=== PATIENT | male | born 1955 | race Caucasian/White ===

== ENCOUNTER → 2018-08-17 | Outpatient (CLI) | payer OTHER, SELFPAY ==
[2018-07-29 13:10] VITALS: BMI 30.8
--- NOTE | 2018-08-17 06:28 | ECHOD_ITS ---
Reason For Study: CAD, CABG Procedure This was a 2D Doppler, Color Flow transthoracic echocardiogram. Exam performed in department. Left Ventricle Normal LV size. Left ventricular systolic function is normal. The estimated ejection fraction is 65 %. Stage 1 diastolic dysfunction. No regional wall motion abnormalities noted. Right Ventricle Normal RV size. Normal systolic function. Atria Normal left atrium. Normal right atrium. Bubble contrast study negative for right to left interatrial shunt. Mitral Valve Normal mitral valve. Tricuspid Valve Normal tricuspid valve. Aortic Valve Normal aortic valve. Pulmonic Valve Normal pulmonic valve. Great Vessels Normal aortic root. The pulmonary artery is normal size. Normal inferior vena cava. Pericardium/Pleural No pericardial effusion. Medication Performed a rapid injection of agitated mix of 9 cc saline and 1cc air to assess for atrial septal defect. MMode/2D Measurements & Calculations LVIDd: 4.7 cm IVSd: 1.3 cm Ao root diam: 4.2 cm LVIDs: 2.8 cm LVPWd: 1.3 cm RVDd: 3.8 cm FS: 40.4 % LAV(MOD-bp): 55.8 ml LA A4 area: 18.5 cm2 LA dimension(2D): 4.8 cm LAV(MOD-bp) Indexed: 25.9 ml/m2 LAV(MOD-sp2): 58.4 ml LAV(MOD-sp4): 50.7 ml RA A4 area: 19.9 cm2 Doppler Measurements & Calculations MV E max zachary: 67.4 cm/sec Lat Peak E' Zachary: 11.5 cm/sec Med Peak E' Zachary: 8.5 cm/sec MV A max zachary: 72.1 cm/sec E/E' lat: 5.9 E/E' med: 7.9 MV E/A: 0.93 Ao V2 max: 117.5 cm/sec LV V1 max: 87.5 cm/sec PA V2 max: 111.5 cm/sec Ao max P.5 mmHg LV V1 max P.1 mmHg TR max zachary: 248.0 cm/sec TR max P.6 mmHg Interpretation Summary Normal LV size. Left ventricular systolic function is normal. The estimated ejection fraction is 65 %. Stage 1 diastolic dysfunction. Bubble contrast study negative for right to left interatrial shunt. Ordering Physician: cB Santos Referring Physician: Dmitri Thomas Performed By: Becky Gonzalez RDCS
--- NOTE | 2018-08-17 10:23 | STRESSREP ---
Stress Test Report Exercise myocardial perfusion stress test. 63-year-old man with a history of coronary artery bypass surgery in 2015. Medications: Metoprolol levothyroxine ramipril rosuvastatin aspirin. Resting EKG demonstrates sinus bradycardia with a rate of 57 bpm normal intervals are noted resting blood pressures 150/76 mmHg. The patient exercised according to regular Salvador protocol for total duration of 8 minutes. The patient completed 2 minutes into stage III of the Salvador protocol the maximum heart rate attained was 142 bpm which was 91% maximum predicted heart rate the maximum workload was 10.1 metabolic equivalents. Patient maintained sinus rhythm throughout the recording. At rest there were no ST or T wave changes noted suggest ischemia peak exercise nonspecific ST-T wave changes were noted. Occasional premature ventricular complexes were noted. The resting blood pressure is 150/76 mmHg with a peak blood pressure of 204/50 mmHg. Myocardial perfusion protocol. 14.2 mCi of technetium 99m sestamibi was injected at rest. The patient exercised according to regular Salvador protocol for 8 minutes at peak exercise 44.4 mCi of technetium 99m sestamibi was injected stress images were obtained stress and rest images were reconstructed in comparing the short axis vertical and horizontal long axis. Gated images were also obtained per Perfusion SPECT analysis: Review of the stress images demonstrate normal uptake of tracer noted in all areas of the myocardium. The resting images similarly demonstrate normal uptake of tracer noted in all areas of the myocardium. No areas of reversibility are noted suggest ischemia no previous infarct is noted. Gated SPECT analysis: The gated ejection fraction is noted to be 66%. Conclusion: Normal exercise myocardial perfusion stress test with no evidence of ischemia at a high workload. No clinical angina noted. Preserved ejection fraction.
== END | disposition home or self-care (01) ==
PROVIDERS: Family Provider Family Medicine; PCP Family Medicine; Referring Provider Internal Medicine Cardiovascular Disease; Visit Provider Internal Medicine Cardiovascular Disease
DX: I25.10 Atherosclerotic heart disease of native coronary artery without angina pectoris (principal); Z95.1 Presence of aortocoronary bypass graft
CPT/HCPCS: 78452; 93017; 93306; A9500; A4216

== ENCOUNTER → 2019-07-26 | Outpatient (CLI) | payer OTHER, SELFPAY ==
[2018-07-29 13:10] VITALS: BMI 30.8
[2019-07-26 12:47] LABS: AST(SGOT) 15 U/L (15-37); Alanine Aminotransfer ALT/SGPT 25 U/L (16-61); Albumin, Serum 3.6 g/dL (3.2-5.0); Alkaline Phosphatase 58 U/L (45-117); Bilirubin, Direct 0.25 mg/dL (0.00-0.30); Cholesterol 122 mg/dL (200); Free T3 2.5 pg/mL (2.18-3.98); Globulin 3.5 g/dL (2.2-4.2); High Density Lipoprotein 33 mg/dL; Protein, Total 7.1 g/dL (6.4-8.2); T4 Total, Thyroxin 10.8 ug/dL (4.5-12.1); Thyroid Stim Hormone (TSH) 4.33 uIU/mL (0.358-3.74); Triglycerides 63 mg/dL; Very Low Density Lipoprotein 13 mg/dL (5-40)
== END | disposition home or self-care (01) ==
LOC: LAB 10:09
PROVIDERS: PCP Family Medicine; Referring Provider Internal Medicine Cardiovascular Disease; Visit Provider Internal Medicine Cardiovascular Disease
DX: E78.5 Hyperlipidemia, unspecified (principal); I10 Essential (primary) hypertension; I25.10 Atherosclerotic heart disease of native coronary artery without angina pectoris; I48.91 Unspecified atrial fibrillation; I97.89 Other postprocedural complications and disorders of the circulatory system, not elsewhere classified; R00.2 Palpitations; Z95.1 Presence of aortocoronary bypass graft
CPT/HCPCS: 36415; 80061; 80076; 84436; 84443; 84481

== ENCOUNTER → 2020-06-29 10:31 | Outpatient (CLI) | payer OTHER, SELFPAY ==
[2020-06-29 07:37] VITALS: BMI 30.7
[2020-06-29 11:47] LABS: AST(SGOT) 15 U/L (15-37); Alanine Aminotransfer ALT/SGPT 24 U/L (16-61); Albumin, Serum 3.5 g/dL (3.2-5.0); Alkaline Phosphatase 57 U/L (45-117); Bilirubin, Direct 0.22 mg/dL (0.00-0.30); Cholesterol 96 mg/dL (200); Globulin 3.5 g/dL (2.2-4.2); High Density Lipoprotein 29 mg/dL; Triglycerides 59 mg/dL; Very Low Density Lipoprotein 12 mg/dL (5-40)
== END ==
LOC: LAB 10:34
PROVIDERS: PCP Family Medicine; Referring Provider Internal Medicine Cardiovascular Disease; Visit Provider Internal Medicine Cardiovascular Disease
DX: E78.5 Hyperlipidemia, unspecified (principal)
CPT/HCPCS: 36415; 80061; 80076

== ENCOUNTER 2023-07-04 00:42 | Observation (INO) | payer OTHER, SELFPAY ==
[2023-07-04] VITALS (19 sets, daily range): BP systolic 125–176; BP diastolic 43–80; PULSE 57–88; RESP 14–19; TEMP 36.7–38.5; O2SAT 90–99; BMI 31.6; BMI 31.7
--- NOTE | 2023-07-04 01:36 | CT_ITS ---
INDICATION: flank pain (right) EXAMINATION: CT ABDOMEN AND PELVIS WITHOUT CONTRAST - CT Abdomen And Pelvis W/O Contrast Injection TECHNIQUE: Helically acquired images were obtained of the abdomen and pelvis without oral or IV contrast. A radiation dose optimization technique was used for this scan. IV Contrast dosage and agent: None. Oral contrast: None. RADIATION DOSAGE (If Supplied By Facility): CTDIvol = ( 19.19 ) mGy, DLP = ( 1012.52 ) mGycm COMPARISON: No relevant prior comparison study available FINDINGS: LOWER CHEST: Lung bases are clear. Mild cardiomegaly. No pericardial effusion. Coronary calcifications. Small sliding-type hiatal hernia. LIVER: The liver is normal in size, shape, and attenuation. No focal mass. GALLBLADDER AND BILIARY TREE: There is gallbladder distention, cholelithiasis and mild pericholecystic fat stranding. No intra- or extrahepatic biliary ductal dilation. PANCREAS: No inflammation. No focal cystic or solid mass. SPLEEN: Normal size without focal cystic or solid mass. ADRENAL GLANDS: No nodules. KIDNEYS AND URETERS: Normal renal size and position. No hydronephrosis or nephrolithiasis. PERITONEUM: No ascites or free air. No other fluid collection. BOWEL: The stomach is unremarkable. Normal caliber small bowel. No obstruction. No colonic wall thickening or inflammatory changes. Normal appendix. LYMPH NODES: No enlarged mesenteric or retroperitoneal lymph nodes. VESSELS: Aorta is non-dilated. URINARY BLADDER: Unremarkable. REPRODUCTIVE ORGANS: No pelvic masses. Mild prostatomegaly. ABDOMINAL WALL: Small bilateral fat-containing inguinal hernias. BONES: No acute or suspicious osseous abnormality. CT/Abdomen/Pelvis without Cont IMPRESSION: * Distended gallbladder with cholelithiasis and mild pericholecystic fat stranding suggestive of cholecystitis. Please correlate with right upper quadrant ultrasound. * No urinary calculi or hydronephrosis. Electronically Signed: Bola Amanda MD at 2:49 EDT ,
[2023-07-04 01:46] LABS: Bacteria 0 SEEN /hpf (None Seen); Mucous, Urine 0 SEEN /hpf (<or=2+); Red Blood Cells-Urine 0 SEEN /hpf (0-5); White Blood Cells 0 SEEN /hpf (0-5)
[2023-07-04] MEDS: 0.9% Normal Saline (1000mL) 1,000 ML 999 ML IV (01:49)
[2023-07-04] MEDS: Ketorolac 15 MG/ML Vial IV (01:49)
[2023-07-04 01:51] LABS: Absolute Lymphocyte Count 1.02 X10^3/uL (0.83-4.51); Absolute Neutrophil Count 13.2 X10^3/uL (2.0-7.7); Basophil# 0.05 X10^3/uL; Basophil% 0.3 % (0-1); Eosinophil# 0.04 X10^3/uL; Eosinophils% 0.3 % (0-5); Hemoglobin 12.3 g/dL (13.0-16.5); Lymphocyte # 1.02 X10^3/ul (0.83-4.51); Lymphocyte % 6.6 % (19-41); Mean Corp Hgb Conc 32.4 g/dL (32-36); Mean Corpuscular Volume 89.6 fL (80-94); Mean Platelet Vol. 10.9 fl (6.2-12.0); Monocyte# 0.95 X10^3/uL; Monocyte% 6.2 % (0-10); NRBC Flagged by Analyzer 0 % (0-5); Neutrophil # 13.19 X10^3/uL (2.7-7.7); Platelet Count 238 K/mm3 (150-450); RBC Distribution Width CV 13.6 % (11.6-14.6); RBC Distribution Width SD 44.4 fl (35.1-43.9); Red Blood Count 4.24 M/mm3 (4.6-6.2); White Blood Count 15.3 K/mm3 (4.4-11.0)
[2023-07-04 01:52] LABS: Color, Urine Yellow (Yellow); Glucose, Dipstick Normal (Normal); Ketone-Dipstick Negative (Negative); Leukocyte Esterase-Dipstick Negative /ul (Negative); Nitrite-Dipstick Negative (Negative); Occult Blood-Urine Negative /ul (Negative); Protein-Dipstick 15 mg/dl (Negative); Specific Gravity, Urine 1.025 (1.002-1.030); Urine Bilirubin Dipstick Negative (Negative); Urine Clarity Clear (Clear); Urine Urobilinogen Normal (Normal)
[2023-07-04 02:02] LABS: Squamous Epithelial Cells - UA 0-5 SEEN /hpf (0-5)
[2023-07-04 02:09] LABS: Anion Gap 5 (5-15); BUN 19 mg/dL (7-18); BUN/Creat Ratio 20.5 RATIO (10-20); Calcium,Total 8.8 mg/dL (8.5-10.1); Chloride 110 mmol/L (98-107); Creatinine, Serum 0.93 mg/dL (0.70-1.30); EST Glomerular Filtration Rate 86 mL/min (>60); Est Glom Filt Rate - Afr Amer 104 mL/min (>60); Estimated Creatinine Clearance 92.87 ml/min; Glucose 171 mg/dL (74-106); Potassium 3.6 mmol/L (3.5-5.1); Sodium Level 141 mmol/L (136-145)
--- NOTE | 2023-07-04 03:23 | US_ITS ---
STUDY: ABDOMINAL ULTRASOUND - RIGHT UPPER QUADRANT REASON FOR VISIT: Male, 67 years old RUQ pain TECHNIQUE: Ultrasound evaluation of the right upper quadrant was performed with real-time and static silvestre-scale imaging. TECHNICAL QUALITY: Adequate. COMPARISON: Comparison is made with prior CT scan done on pelvis done earlier in the day. FINDINGS: Liver: The liver measures 17.9 cm. There is normal echogenicity of the liver. The bile ducts are within normal limits. There is hepatic color flow. The direction of portal flow is hepatopetal. There is no demonstrated mass lesion. Gallbladder: Normal distended gallbladder. The gallbladder wall is mildly thickened and measures 3.3 mm. There is a positive sonographic Harris''s sign. There is pericholecystic fluid. There are multiple echogenic structures within the gallbladder, consistent with multiple gallstones. Sludge is also seen within the gallbladder lumen. Common Bile Duct (C.B.D.): The common bile duct measures 3.9 mm. Pancreas: Normal size of the head, body and tail of the pancreas. There is normal echogenicity of the pancreas. There is no demonstrated pancreatic mass or cyst. Right Kidney: Normal size of the right kidney. The right kidney measures 10.8 cm x 6 cm x 7.4 cm. Normal renal cortex. The right cortex measures 2.4 cm. There is no demonstrated renal mass or cyst. There is no right hydronephrosis. US/Gallbladder IMPRESSION: Multiple gallstones with a mildly thickened gallbladder wall with minimal pericholecystic fluid and positive sonographic Harris sign. Electronically Signed: Gabe Crawford MD at 8:50 EDT ,
--- NOTE | 2023-07-04 03:35 | EX.ED.DYSGE1 ---
HPI History of Present Illness Chief Complaint: Flank Pain Informant: patient and spouse/S.O. Narrative Narrative: Patient is a 67-year-old male with past medical history of hypertension hyperlipidemia. He states that he was sitting watching TV around 7 PM this evening when he developed some sharp right sided abdominal/back pain. He reports that there was no recent trauma or excessive activity. He denies any dysuria or hematuria. He states that he is nauseous secondary to the pain but denies vomiting. He reports that he took [id number] medications and gave the pain time to improve but it has not done so and secondary to this he comes in for evaluation [facility] Medical History (Updated 07/04/23 @ 04:[address] Armando Sun DO) Atherosclerosis of coronary artery without angina pectoris Essential (primary) hypertension GERD (gastroesophageal reflux disease) Hyperlipidemia Hypothyroidism Obesity (BMI 30.0-34.9) Postoperative atrial fibrillation Home Medications rosuvastatin 40 mg tablet (Crestor) 40 mg PO DAILY #90 tabs 07/29/19 [Rx Last Taken Unknown] aspirin 81 mg tablet,delayed release (Adult Aspirin Regimen) 162 mg PO DAILY 06/29/20 [History Last Taken Unknown] ramipril 10 mg capsule 10 mg PO DAILY #90 caps 06/29/20 [Rx Last Taken Unknown] levothyroxine 125 mcg tablet 125 mcg PO DAILY disorder of thyroid gland 07/04/23 [History Last Taken Unknown] metoprolol succinate 50 mg tablet,extended release 24 hr 50 mg PO DAILY 07/04/23 [History Last Taken Unknown] omeprazole 10 mg capsule,delayed release 10 mg PO DAILY 07/04/23 [History Last Taken Unknown] Allergy/AdvReac Type Severity Reaction Status Date / Time poison donovan extract Allergy NEEDS Verified 07/04/23 00:44 FOLLOW-UP hydrocodone [From Vicodin] AdvReac GI Upset Verified 07/04/23 00:44 Family History Mother Cancer non-hodgkins lymphoma Hypertension Brother Cancer prostate cancer Sister Cancer lung cancer, hodgkins lymphoma Brother Colon cancer Father Heart disease AAA Surgical History H/O coronary artery bypass surgery (10/25/14) H/O partial thyroidectomy History of left heart catheterization (10/17/14) Social History Smoking Status: Former smoker quit date: 10/11/79 pack-years: 8 ROS ROS ED Constitutional Constitutional ED: Denies chills or fever(s) Eyes Eyes: Denies change in vision ENT ENT ED: Denies sore throat Cardiovascular Cardiovascular: Denies chest pain Respiratory/Chest Respiratory/Chest: Denies cough or dyspnea Gastrointestinal Gastrointestinal: Reports abdominal pain and nausea; Denies diarrhea or vomiting Genitourinary Genitourinary ED: Denies dysuria, hematuria or urinary frequency Musculoskeletal Musculoskeletal: Reports back pain Integumentary Denies rash Neurologic Neurologic: Denies headache(s) Hematologic/Lymphatic Hematologic/Lymphatic: Denies easy bleeding or easy bruising EXAM Physical Exam Const Vital Signs: 07/04/23 00:42 07/04/23 00:42 07/04/23 02:42 Temperature 98.3 F Temperature Source Temporal Pulse Rate 60 88 Respiratory Rate 18 16 Respiratory Effort Normal Respiratory Pattern Normal Blood Pressure 176/69 H 154/80 H Blood Pressure Mean 104 104 Pulse Ox 97 97 Oxygen Delivery Method Room Air Room Air 07/04/23 03:43 07/04/23 03:43 Temperature 98.1 F 98.1 F Temperature Source Temporal Pulse Rate 77 77 Respiratory Rate 19 H 18 Respiratory Effort Respiratory Pattern Blood Pressure 141/74 H 141/71 H Blood Pressure Mean 96 94 Pulse Ox 99 99 Oxygen Delivery Method Room Air Positive well nourished and well developed General Appearance ED: well developed; Negative for pallor HEENT HEENT Narrative: Normocephalic atraumatic Eyes PERRL and EOMs intact bilaterally General Eye ED: Negative for scleral icterus Neck supple Neck Narrative: No nuchal rigidity or meningeal signs Resp normal respiratory effort and clear to auscultation bilaterally Cardio regular rate and regular rhythm Rate: other Other Details: Heart is regular rate and rhythm Radial and carotid pulses are equal and symmetric GI non-distended GI Narrative: Abdomen is soft and nondistended with normal active bowel sounds. Patient has pain on palpation in the right upper quadrant. No voluntary guarding or rigidity. No pulsatile mass. Negative Harris sign Auscultation: normoactive bowel sounds Palpation: soft Back/Spine Back/Spine Narrative: Positive right CVA pain Extremity normal to inspection Neuro oriented x3, CN's II-XII intact bilaterally and no sensory deficits noted Sensorium / Orientation: alert Motor Exam: strength 5/5 throughout Psych mental status grossly normal Skin no rashes or lesions noted and no wounds General Skin Exam: Negative for jaundice or pallor MDM MDM MDM Narrative Medical decision making narrative: Patient arrived to the ER hypertensive otherwise with stable vitals. He reported sudden onset of pain along the right flank and right upper abdomen without trauma or excessive activity. He states that there is no improvement with dxxy-sav-ngunbuz medications and the pain did not seem to improve or worsen with any type of position change. He did state that he had cream of mushroom soup and some type of cheese sandwich prior to the pain beginning. Differential diagnosis is for kidney stone versus biliary colic versus acute cholecystitis versus pancreatitis. Urine sample was obtained which showed no blood going against stone but as he did not have jaundice or scleral icterus or fever and he did have right CVA pain a noncontrast CT was obtained to check for potential kidney stone or abdominal pathology. CT scan showed a distended gallbladder with gallstones and signs of pericholecystic fluid concerning for acute cholecystitis. The patient does have a white blood cell count and secondary to his lactic acid was added and he was started on Zosyn. The case was discussed with general surgery Dr. Andino. Based on his white count and CT scan he does feel the patient will most likely need acute cholecystectomy and recommends admission to his service. He is okay with waiting a few hours for the ultrasound as the patient is being admitted at this time and that would not change overall plan of care. This plan of care was discussed with the patient and he is agreeable to it and therefore he will be admitted to the hospital for continued IV antibiotics and potential cholecystectomy secondary to acute cholecystitis History & Record Review Discussion w/independent historian: Patient and Significant other Lab Data Attestation: I reviewed the patient's lab results. Labs: Laboratory Results - last 24 hr 07/04/23 07/04/23 07/04/23 00:50 00:59 03:30 WBC 15.3 H RBC 4.24 L Hgb 12.3 L Hct 38.0 L MCV 89.6 MCH 29.0 MCHC 32.4 RDW Std Deviation 44.4 H RDW Coeff of Prabhjot 13.6 Plt Count 238 MPV 10.9 Immature Gran % (Auto) 0.600 Neut % (Auto) 86.0 H Lymph % (Auto) 6.6 L [place] % (Auto) 6.2 Eos % (Auto) 0.3 Baso % (Auto) 0.3 Absolute Neuts (auto) 13.2 H Absolute Lymphs (auto) 1.02 Nucleated RBC % 0 Sodium 141 Potassium 3.6 Chloride 110 H Carbon Dioxide 26.0 Anion Gap 5 BUN 19 H Creatinine 0.93 Estim Creat Clear Calc 92.87 Est GFR (MDRD) Af Amer 104 Est GFR (MDRD) Non-Af 86 BUN/Creatinine Ratio 20.5 H Glucose 171 H Lactic Acid 1.0 Calcium 8.8 Total Bilirubin Direct Bilirubin AST ALT Alkaline Phosphatase Total Protein Albumin Globulin Lipase Urine Color Yellow Urine Clarity Clear Urine pH 5.0 Ur Specific [place] 1.025 Urine Protein 15 H Urine Glucose (UA) Normal Urine Ketones Negative Urine Occult Blood Negative Urine Nitrite Negative Urine Bilirubin Negative Urine Urobilinogen Normal Ur Leukocyte Esterase Negative Urine RBC 0 SEEN Urine WBC 0 SEEN Ur Squamous Epith Cells 0-5 SEEN Urine Bacteria 0 SEEN Urine Mucus 0 SEEN 07/04/23 03:44 WBC RBC Hgb Hct MCV MCH MCHC RDW Std Deviation RDW Coeff of Prabhjot Plt Count MPV Immature Gran % (Auto) Neut % (Auto) Lymph % (Auto) [place] % (Auto) Eos % (Auto) Baso % (Auto) Absolute Neuts (auto) Absolute Lymphs (auto) Nucleated RBC % Sodium Potassium Chloride Carbon Dioxide Anion Gap BUN Creatinine Estim Creat Clear Calc Est GFR (MDRD) Af Amer Est GFR (MDRD) Non-Af BUN/Creatinine Ratio Glucose Lactic Acid Calcium Total Bilirubin 0.70 Direct Bilirubin 0.20 AST 14 L ALT 20 Alkaline Phosphatase 57 Total Protein 6.8 Albumin 3.5 Globulin 3.3 Lipase 23 Urine Color Urine Clarity Urine pH Ur Specific [place] Urine Protein Urine Glucose (UA) Urine Ketones Urine Occult Blood Urine Nitrite Urine Bilirubin Urine Urobilinogen Ur Leukocyte Esterase Urine RBC Urine WBC Ur Squamous Epith Cells Urine Bacteria Urine Mucus Radiography Diagnostic Testing: Clinical Impression(s) from Imaging Studies Abdomen/Pelvis CT 07/04/23 01:36 IMPRESSION: * Distended gallbladder with cholelithiasis and mild pericholecystic fat stranding suggestive of cholecystitis. Please correlate with right upper quadrant ultrasound. * No urinary calculi or hydronephrosis. Electronically Signed: Boal Amanda MD at 2:49 EDT , Discharge Plan Dx/Rx/DC Orders Clinical Impression: Acute calculous cholecystitis, Essential (primary) hypertension, Hyperlipidemia Disposition Disposition: Acute Care Hospital [facility] [place] [facility]
[2023-07-04] MEDS: Piperacil/Tazobactam 3.375 GM in 0.9% Normal Saline (50mL MB+) 50 ML IV ×3 (03:37→21:59)
[2023-07-04 04:10] LABS: AST(SGOT) 14 U/L (15-37); Alanine Aminotransfer ALT/SGPT 20 U/L (16-61); Albumin, Serum 3.5 g/dL (3.2-5.0); Alkaline Phosphatase 57 U/L (45-117); Globulin 3.3 g/dL (2.2-4.2); Lipase 23 U/L (13-75); Protein, Total 6.8 g/dL (6.4-8.2)
[2023-07-04] MEDS: 0.9% Saline Lock 10 ML Syringe IV ×2 (05:25→21:59)
[2023-07-04] MEDS: 0.9% Normal Saline (1000mL) 1,000 ML 125 ML IV ×2 (05:26→16:44)
[2023-07-04 07:48] LABS: Absolute Lymphocyte Count 0.72 X10^3/uL (0.83-4.51); Absolute Neutrophil Count 14.2 X10^3/uL (2.0-7.7); Basophil# 0.03 X10^3/uL; Basophil% 0.2 % (0-1); Eosinophil# 0.02 X10^3/uL; Eosinophils% 0.1 % (0-5); Hematocrit 33.2 % (40-54); Hemoglobin 10.9 g/dL (13.0-16.5); Lymphocyte # 0.72 X10^3/ul (0.83-4.51); Lymphocyte % 4.1 % (19-41); Mean Corp Hgb Conc 32.8 g/dL (32-36); Mean Corpuscular Hgb 29.1 pg (27.0-32.0); Mean Corpuscular Volume 88.8 fL (80-94); Mean Platelet Vol. 10.6 fl (6.2-12.0); Monocyte# 2.47 X10^3/uL; Monocyte% 14.1 % (0-10); NRBC Flagged by Analyzer 0 % (0-5); Neutrophil # 14.16 X10^3/uL (2.7-7.7); Neutrophil % 80.6 % (47-70); POSITIVE DIFFERENTIAL YES; Platelet Count 201 K/mm3 (150-450); RBC Distribution Width CV 13.7 % (11.6-14.6); RBC Distribution Width SD 44.2 fl (35.1-43.9); Red Blood Count 3.74 M/mm3 (4.6-6.2); White Blood Count 17.6 K/mm3 (4.4-11.0)
[2023-07-04 08:10] LABS: Anion Gap 4 (5-15); BUN 15 mg/dL (7-18); BUN/Creat Ratio 15.4 RATIO (10-20); Chloride 113 mmol/L (98-107); Creatinine, Serum 0.97 mg/dL (0.70-1.30); EST Glomerular Filtration Rate 81 mL/min (>60); Est Glom Filt Rate - Afr Amer 98 mL/min (>60); Estimated Creatinine Clearance 89.17 ml/min; Glucose 132 mg/dL (74-106); Potassium 3.7 mmol/L (3.5-5.1); Sodium Level 142 mmol/L (136-145); Thyroid Stim Hormone (TSH) 0.77 uIU/mL (0.358-3.74)
[2023-07-04 08:22] LABS: Differential Indicated SCAN CRITERIA MET
--- NOTE | 2023-07-04 09:02 | HP.PCM.SX_ITS ---
HPI - General General Date of Admission: 07/04/23 HPI Narrative VAHE NAVARRETE, is a 67 M who presents with abdominal pain in the right upper quadrant. The patient reports this started yesterday. He says the pain is in the right upper quadrant radiates to the right back. He does report that he had nausea and vomiting yesterday. He denies fevers or chills. [facility], [facility] Medical History (Updated 07/04/23 @ 04:[address] Armando Sun DO) Atherosclerosis of coronary artery without angina pectoris Essential (primary) hypertension GERD (gastroesophageal reflux disease) Hyperlipidemia Hypothyroidism Obesity (BMI 30.0-34.9) Postoperative atrial fibrillation Home Medications rosuvastatin 40 mg tablet (Crestor) 40 mg PO DAILY cholesterol #90 tabs 07/29/19 [Rx Last Taken 07/03/23] aspirin 81 mg tablet,delayed release (Adult Aspirin Regimen) 162 mg PO DAILY heart health 06/29/20 [History Last Taken 07/03/23] ramipril 10 mg capsule 10 mg PO DAILY blood pressure #90 caps 06/29/20 [Rx Last Taken 07/03/23] levothyroxine 125 mcg tablet 125 mcg PO DAILY disorder of thyroid gland 07/04/23 [History Last Taken 07/03/23] metoprolol succinate 50 mg tablet,extended release 24 hr 50 mg PO DAILY blood pressure 07/04/23 [History Last Taken 07/03/23] omeprazole 10 mg capsule,delayed release 10 mg PO DAILY stomach acid 07/04/23 [History Last Taken 07/03/23] Allergy/AdvReac Type Severity Reaction Status Date / Time poison donovan extract Allergy NEEDS Verified 07/04/23 00:44 FOLLOW-UP hydrocodone [From Vicodin] AdvReac GI Upset Verified 07/04/23 00:44 Family History Mother Cancer non-hodgkins lymphoma Hypertension Brother Cancer prostate cancer Sister Cancer lung cancer, hodgkins lymphoma Brother Colon cancer Father Heart disease AAA Surgical History H/O coronary artery bypass surgery (10/25/14) H/O partial thyroidectomy History of left heart catheterization (10/17/14) Social History Smoking Status: Former smoker quit date: 10/11/79 pack-years: 8 ROS Constitutional Constitutional: Denies anorexia, chills, fatigue or fever(s) Eyes Eyes: Denies blurry vision ENT HEENT: Denies abnormal hearing Cardiovascular Cardiovascular: Denies chest pain Respiratory/Chest Respiratory/Chest: Denies cough or dyspnea Gastrointestinal Gastrointestinal: Reports abdominal pain, nausea and vomiting Genitourinary Genitourinary: Denies change in urinary stream Musculoskeletal Musculoskeletal: Denies abnormal gait Integumentary Integumentary: Denies jaundice or new lesions Neurologic Neurologic: Denies abnormal gait Psychiatric Psychiatric: Denies anxiety Endocrine Endocrinology: Denies flushing Hematologic/Lymphatic Hematologic/Lymphatic: Denies easy bleeding Vital Signs Vital Signs Vital Signs: 07/04/23 00:42 07/04/23 00:42 07/04/23 02:42 Temperature 98.3 F Temperature Source Temporal Pulse Rate 60 88 Pulse Strength Respiratory Rate 18 16 Respiratory Effort Normal Respiratory Pattern Normal Blood Pressure 176/69 H 154/80 H Blood Pressure Mean 104 104 Blood Pressure Source Blood Pressure Position Blood Pressure Location Pulse Ox 97 97 Oxygen Delivery Method Room Air Room Air 07/04/23 03:43 07/04/23 03:43 07/04/23 04:00 Temperature 98.1 F 98.1 F Temperature Source Temporal Pulse Rate 77 77 85 Pulse Strength Respiratory Rate 19 H 18 17 Respiratory Effort Respiratory Pattern Blood Pressure 141/74 H 141/71 H 142/74 H Blood Pressure Mean 96 94 96 Blood Pressure Source Blood Pressure Position Blood Pressure Location Pulse Ox 99 99 98 Oxygen Delivery Method Room Air Room Air 07/04/23 05:14 07/04/23 08:18 Temperature 99.9 F H Temperature Source Oral Pulse Rate 70 Pulse Strength Normal (2+) Respiratory Rate 16 Respiratory Effort Respiratory Pattern Blood Pressure 152/54 H Blood Pressure Mean 86 Blood Pressure Source Monitor Blood Pressure Position Semi-Fowlers Blood Pressure Location Right Arm Pulse Ox 97 Oxygen Delivery Method Room Air Weight Weight: 227 lb 11.2 oz Body Mass Index (BMI) 31.7 Physical Exam Const oriented x3 and no apparent distress Resp normal respiratory effort Cardio regular rate and regular rhythm GI soft to palpation Palpation: tender RUQ Extremity normal to inspection Results Lab / Micro Data 07/04/23 07:32 07/04/23 07:32 Labs: Laboratory Results - last 24 hr 07/04/23 00:50: Urine Color Yellow, Urine Clarity Clear, Urine pH 5.0, Ur Specific [place] 1.025, Urine Protein 15 H, Urine Glucose (UA) Normal, Urine Ketones Negative, Urine Occult Blood Negative, Urine Nitrite Negative, Urine Bilirubin Negative, Urine Urobilinogen Normal, Ur Leukocyte Esterase Negative, Urine RBC 0 SEEN, Urine WBC 0 SEEN, Ur Squamous Epith Cells 0-5 SEEN, Urine Bacteria 0 SEEN, Urine Mucus 0 SEEN 07/04/23 00:59: WBC 15.3 H, RBC 4.24 L, Hgb 12.3 L, Hct 38.0 L, MCV 89.6, MCH 29.0, MCHC 32.4, RDW Std Deviation 44.4 H, RDW Coeff of Prabhjot 13.6, Plt Count 238, MPV 10.9, Immature Gran % (Auto) 0.600, Neut % (Auto) 86.0 H, Lymph % (Auto) 6.6 L, [place] % (Auto) 6.2, Eos % (Auto) 0.3, Baso % (Auto) 0.3, Absolute Neuts (auto) 13.2 H, Absolute Lymphs (auto) 1.02, Nucleated RBC % 0, Sodium 141, Potassium 3.6, Chloride 110 H, Carbon Dioxide 26.0, Anion Gap 5, BUN 19 H, Creatinine 0.93, Estim Creat Clear Calc 92.87, Est GFR (MDRD) Af Amer 104, Est GFR (MDRD) Non-Af 86, BUN/Creatinine Ratio 20.5 H, Glucose 171 H, Calcium 8.8 07/04/23 03:30: Lactic Acid 1.0 07/04/23 03:44: Total Bilirubin 0.70, Direct Bilirubin 0.20, AST 14 L, ALT 20, Alkaline Phosphatase 57, Total Protein 6.8, Albumin 3.5, Globulin 3.3, Lipase 23 07/04/23 07:32: WBC 17.6 H, RBC 3.74 L, Hgb 10.9 L, Hct 33.2 L, MCV 88.8, MCH 29.1, MCHC 32.8, RDW Std Deviation 44.2 H, RDW Coeff of Prabhjot 13.7, Plt Count 201, MPV 10.6, Immature Gran % (Auto) 0.900, Neut % (Auto) 80.6 H, Lymph % (Auto) 4.1 L, [place] % (Auto) 14.1 H, Eos % (Auto) 0.1, Baso % (Auto) 0.2, Absolute Neuts (auto) 14.2 H, Absolute Lymphs (auto) 0.72 L, Nucleated RBC % 0, Sodium 142, Potassium 3.7, Chloride 113 H, Carbon Dioxide 25.0, Anion Gap 4 L, BUN 15, Creatinine 0.97, Estim Creat Clear Calc 89.17, Est GFR (MDRD) Af Amer 98, Est GFR (MDRD) Non-Af 81, BUN/Creatinine Ratio 15.4, Glucose 132 H, Calcium 8.0 L, TSH 0.77 Imaging Radiology Impression Abdomen/Pelvis CT 07/04/23 01:36 IMPRESSION: * Distended gallbladder with cholelithiasis and mild pericholecystic fat stranding suggestive of cholecystitis. Please correlate with right upper quadrant ultrasound. * No urinary calculi or hydronephrosis. Electronically Signed: Bola Amanda MD at 2:49 EDT , Gallbladder Ultrasound 07/04/23 03:23 IMPRESSION: Multiple gallstones with a mildly thickened gallbladder wall with minimal pericholecystic fluid and positive sonographic Harris sign. Electronically Signed: Gabe Crawford MD at 8:50 EDT , Assessment & Plan Assessment/Plan (1) Acute calculous cholecystitis: PLAN: The patient had right upper quadrant pain and CT scan confirmed pericholecystic fluid and gallstones with an elevated white count. He was admitted to the floor overnight and started on antibiotics. Ultrasound this morning shows mild thickening of the gallbladder wall with gallstones and pericholecystic fluid with a positive Harris sign. His white count is still elevated. Plan for laparoscopic cholecystectomy this afternoon. I discussed laparoscopic cholecystectomy with him in detail. I discussed the procedure in detail with the patient. I discussed the risks, benefits, and alternatives of the procedure. I discussed the risks including but not limited to bleeding, infection, injury to surrounding organs such as the liver, bile duct, bowels. I did discuss the possibility of having to convert to an open procedure as well as the possibility that if any injuries occurred this may necessitate further surgery at a tertiary care center. Chris Andino MD Pager: [facility] [address] [place] [address] [address] [place] [address] Office:
--- NOTE | 2023-07-04 11:20 | CASEMGMT ---
RN CM Face to Face with patient for initial transition planning/care coordination assessment. RN CM introduced self and role at [facility]. Patient lying in bed, alert and oriented, and granddaughter at bedside. Patient willing to participate in assessment and is able to answer all questions appropriately. Care providers, pharmacy, and demographics verified. PCP: Nomi Specialists: Antonio fur matcher [facility] Preferred Pharmacy: [facility] Insurance: MMO Prescription Benefit: yes Living Will/HPOA: none LNOK: Living Arrangements: Patient lives with in a 2 story home. Patient is independent and able to ambulate stairs. Transportation: self, DME/HHC: Denies DME in the home. No previous HHC or SNF Patient wishes to discharge home, denies need for home health at this time. Patient states he has no further needs or concerns at this time. CM to follow for discharge planning needs that may arise. Disposition Plan: Patient to discharge home with family support and follow-up plans in place. Abbey GRIER, RN, CM
--- NOTE | 2023-07-04 12:15 | NURSING ---
report given to Ines juarez AC and pt to surgical area staff made aware pt fever and home meds not ordered/given this am
--- NOTE | 2023-07-04 13:00 | GALL_PTH ---
PATIENT: VAHE NAVARRETE LOC: [facility] U#:[id number] AGE/SX: 67/M ROOM: [facility] RE07/04/[address]: Dr. Chris Andino MD : [id number] BED: 1 DIS: 07/05/2023 SPEC #: [id number] RECD: 07/04/23 18:31 STATUS: ZAK PENA #: [id number] KIRK: 07/04/23 13:[address]: Chris Andino DEPT: SURGICAL PATHOLOGY RECD BY: Carolynn Campbell ENTERED: 07/07/23 07:26 SP TYPE: JADE CLARK DR: Dr. Dmitri Mosher MD Tissues: Gallbladder, NOS Procedures: Surgery Specimen Level III HEADER OPERATION: Laparoscopic, cholecystectomy with IOC PRE-OP DIAGNOSIS: Acute cholecystitis TISSUE SUBMITTED: Gallbladder and contents MICROSCOPIC DIAGNOSIS Gallbladder and contents: Acute and chronic, ulcerated and hemorrhagic cholecystitis and cholelithiasis. A benign pericystic lymph node with reactive changes. PATRICK/ 07/08/23 MICROSCOPIC DESCRIPTION Slides are reviewed. GROSS DESCRIPTION Received is one container labeled with the patient's name and designated gallbladder. The specimen consists of a gallbladder measuring 8.0 x 3.0 x 2.5 cm. The gallbladder has previously been opened in an area measuring 4.0cm in greatest dimension. A distinct cystic duct is not identified. The external surface is smooth and glistening. Focally, it is granular, hemorrhagic and contains cautery artifact. The lumen of the gallbladder contains yellow-green mucoid bile and multiple black calculi ranging in size from <0.1 to 0.2 cm in greatest dimension. The mucosa is bile-stained and without any mass lesions. The gallbladder wall averages 0.2 cm in thickness and is free of mass lesions. Concrete Pump Operator sections of the gallbladder and the cystic duct at margin of resection are submitted in one cassette. / AM: 07/07/2023 TC:2 CPT: 13017
[2023-07-04] MEDS: Bupiv/Epi 0.25% 30 ML Vial (15:13)
--- NOTE | 2023-07-04 15:23 | OP.PCM_ITS ---
Report of Operation Date of Procedure: 07/04/23 Pre-Operative Diagnosis: Acute cholecystitis Post-Operative Diagnosis: Acute cholecystitis Surgery/Procedure Performed:: Laparoscopic cholecystectomy Type of Anesthesia: General/Regional Specimen's removed: Gallbladder Estimated Blood Loss (mL): 50 Description of Procedure: After obtaining informed consent patient was brought back to the operating room. General anesthesia was induced. The abdomen was prepped and draped in usual sterile fashion. A small midline incision was made superior to the umbilicus and deepened to the level of fascia. The fascia was elevated and incised. Next the peritoneum was elevated and incised in the same fashion. Finger sweep was performed and the Rick trocar was placed into the abdomen. The balloon was inflated. The abdomen was inflated to 15 mmHg. Next a camera was introduced into the abdomen and the abdomen was inspected. Next under direct visualization three 5-mm ports were placed one subxiphoid and 2 subcostal. The omental fat was tightly adherent to the liver. This was dissected until the gallbladder was encountered. It was very inflamed and somewhat gangrenous. Next the gallbladder was elevated and retracted toward the right shoulder. The peritoneum was stripped from the gallbladder. The infundibulum was located and retracted laterally. Next the triangle of Calot was dissected and the cystic duct and cystic artery were identified. Cholangiograms were attempted. During dissection from the liver bed and during the dissection of the triangle of C oelho the gallbladder had opened in several places and I was unable to keep everything sealed to perform cholangiogram with the Nguyen clamp. I was also unable to get a Ranfac catheter down to the area of the cystic duct so I was unable to perform cholangiograms. I dissected free the mid gallbladder from the liver bed to ensure that the cystic duct was in fact the cystic duct. Three hemolock clips were placed across the cystic duct. The cystic duct was then divided leaving 2 clips on the stump. The cystic artery was clipped and divided in the same fashion. The hook cautery was then used to take the gallbladder off of the gallbladder bed. Hemostasis was obtained. Gallbladder fossa was irrigated and no active bleeding or bile leakage was noted. Next the camera was introduced in the subxiphoid port. An Endopouch bag was placed through the umbilical port and the gallbladder was placed into it. The gallbladder was then removed through the umbilical incision. The camera was then reinserted through the umbilical port. The gallbladder fossa was irrigated and then hemostasis was obtained using argon coagulation. The gallbladder fossa was inspected once more and noted to be hemostatic with no leaking bile. The abdomen was suctioned dry. The 5 mm ports were removed under direct visualization. The umbilical port was then removed and the air was removed from the abdomen. Next using an 0 Vicryl suture the umbilical fascia was closed in a [id number] fashion. The umbilical port site was irrigated local anesthetic was administered to all the incisions. All the incisions were closed with interrupted subcuticular 4-0 Monocryl sutures followed by Steri-Strips and dressings. The patient was awoken and taken to PACU in stable condition. Admit VTE Documentation VTE Mechan Device Prophylaxis: SCD's
--- NOTE | 2023-07-04 15:27 | PCM.DC.SUM ---
Providers Date of Admission: 07/04/23 Primary Care Physician: Dr. Dmitri Mosher MD Reason For Visit: ACUTE CHOLECYSTITIS Diagnosis Discharge Diagnosis (1) Acute calculous cholecystitis: Status: Acute Code(s): K80.00 - Calculus of gallbladder with acute cholecystitis without obstruction Plan: The patient had right upper quadrant pain and CT scan confirmed pericholecystic fluid and gallstones with an elevated white count. He was admitted to the floor overnight and started on antibiotics. Ultrasound this morning shows mild thickening of the gallbladder wall with gallstones and pericholecystic fluid with a positive Harris sign. His white count is still elevated. Plan for laparoscopic cholecystectomy this afternoon. I discussed laparoscopic cholecystectomy with him in detail. I discussed the procedure in detail with the patient. I discussed the risks, benefits, and alternatives of the procedure. I discussed the risks including but not limited to bleeding, infection, injury to surrounding organs such as the liver, bile duct, bowels. I did discuss the possibility of having to convert to an open procedure as well as the possibility that if any injuries occurred this may necessitate further surgery at a tertiary care center. Chris Andino MD Pager: [facility] [address] [place] [address], [address] [place] [address] Office: Medications at Discharge Home Medications rosuvastatin 40 mg tablet (Crestor) 40 mg PO DAILY cholesterol #90 tabs 07/29/19 aspirin 81 mg tablet,delayed release (Adult Aspirin Regimen) 162 mg PO DAILY heart health 06/29/20 ramipril 10 mg capsule 10 mg PO DAILY blood pressure #90 caps 06/29/20 levothyroxine 125 mcg tablet 125 mcg PO DAILY disorder of thyroid gland 07/04/23 metoprolol succinate 50 mg tablet,extended release 24 hr 50 mg PO DAILY blood pressure 07/04/23 omeprazole 10 mg capsule,delayed release 10 mg PO DAILY stomach acid 07/04/23 oxycodone 5 mg tablet 5 - 10 mg (1 - 2 x 5 mg) PO Q4H PRN PRN Pain Score 4-10 5 days #20 tabs 07/04/23 Hospital Course Operations cholecystecomy Procedures None Summary of Care Provided Hospital Course: Patient was admitted with acute cholecystitis. He was started on antibiotics and admitted to the floor. The following day the white count increased and the patient was having fevers. He was taken for laparoscopic cholecystectomy. The gallbladder was gangrenous and very inflamed. The following day the patient was started on a diet and once tolerating diet he will be discharged home. Weight / BMI Weight Weight: 227 lb 11.095 oz Body Mass Index (BMI) 31.7 ABG / Lab / Microbiology Data 07/04/23 07:32 07/04/23 07:32 Laboratory: Laboratory Results - last 24 hr 07/04/23 00:50: Urine Color Yellow, Urine Clarity Clear, Urine pH 5.0, Ur Specific [place] 1.025, Urine Protein 15 H, Urine Glucose (UA) Normal, Urine Ketones Negative, Urine Occult Blood Negative, Urine Nitrite Negative, Urine Bilirubin Negative, Urine Urobilinogen Normal, Ur Leukocyte Esterase Negative, Urine RBC 0 SEEN, Urine WBC 0 SEEN, Ur Squamous Epith Cells 0-5 SEEN, Urine Bacteria 0 SEEN, Urine Mucus 0 SEEN 07/04/23 00:59: WBC 15.3 H, RBC 4.24 L, Hgb 12.3 L, Hct 38.0 L, MCV 89.6, MCH 29.0, MCHC 32.4, RDW Std Deviation 44.4 H, RDW Coeff of Prabhjot 13.6, Plt Count 238, MPV 10.9, Immature Gran % (Auto) 0.600, Neut % (Auto) 86.0 H, Lymph % (Auto) 6.6 L, [place] % (Auto) 6.2, Eos % (Auto) 0.3, Baso % (Auto) 0.3, Absolute Neuts (auto) 13.2 H, Absolute Lymphs (auto) 1.02, Nucleated RBC % 0, Sodium 141, Potassium 3.6, Chloride 110 H, Carbon Dioxide 26.0, Anion Gap 5, BUN 19 H, Creatinine 0.93, Estim Creat Clear Calc 92.87, Est GFR (MDRD) Af Amer 104, Est GFR (MDRD) Non-Af 86, BUN/Creatinine Ratio 20.5 H, Glucose 171 H, Calcium 8.8 07/04/23 03:30: Lactic Acid 1.0 07/04/23 03:44: Total Bilirubin 0.70, Direct Bilirubin 0.20, AST 14 L, ALT 20, Alkaline Phosphatase 57, Total Protein 6.8, Albumin 3.5, Globulin 3.3, Lipase 23 07/04/23 07:32: WBC 17.6 H, RBC 3.74 L, Hgb 10.9 L, Hct 33.2 L, MCV 88.8, MCH 29.1, MCHC 32.8, RDW Std Deviation 44.2 H, RDW Coeff of Prabhjot 13.7, Plt Count 201, MPV 10.6, Immature Gran % (Auto) 0.900, Neut % (Auto) 80.6 H, Lymph % (Auto) 4.1 L, [place] % (Auto) 14.1 H, Eos % (Auto) 0.1, Baso % (Auto) 0.2, Absolute Neuts (auto) 14.2 H, Absolute Lymphs (auto) 0.72 L, Nucleated RBC % 0, Sodium 142, Potassium 3.7, Chloride 113 H, Carbon Dioxide 25.0, Anion Gap 4 L, BUN 15, Creatinine 0.97, Estim Creat Clear Calc 89.17, Est GFR (MDRD) Af Amer 98, Est GFR (MDRD) Non-Af 81, BUN/Creatinine Ratio 15.4, Glucose 132 H, Calcium 8.0 L, TSH 0.77 Radiography Diagnostic Testing: Radiology Impression Abdomen/Pelvis CT 07/04/23 01:36 IMPRESSION: * Distended gallbladder with cholelithiasis and mild pericholecystic fat stranding suggestive of cholecystitis. Please correlate with right upper quadrant ultrasound. * No urinary calculi or hydronephrosis. Electronically Signed: Bola Amanda MD at 2:49 EDT , Gallbladder Ultrasound 07/04/23 03:23 IMPRESSION: Multiple gallstones with a mildly thickened gallbladder wall with minimal pericholecystic fluid and positive sonographic Harris sign. Electronically Signed: Gabe Crawford MD at 8:50 EDT , D/C Instructions Discharge Diet: Light diet - advance as tolerated Discharge Activity: May Not Drive (for 2-3 days or while taking narcotic pain medications.) and - (Do not drive, work heavy equipment or sign legal documents for 24 hours.) May shower in (days): 1 Lifting Restrictions: 20 lbs for 2 weeks Additional Activity Instructions: Pain medication may cause nausea. You should typically eat light foods as you take your pain medications. Pain medication may also cause constipation. If this is a problem for you, please discuss with your doctor. Call your doctor if your incision/area has: Continuous Slow Oozing, Sudden Increased Bleeding, Increased Pain/ Swelling, Increased Redness and Foul Smelling Discharge Call your doctor if you observe: Fever of 101 or Higher Suture Line Care: Avoid Pulling/Pushing and Avoid Pinching/Bending Remove Dressing in: 2 days Cleanse incision/area with: Soap & Water Additional Dressing/Incision Instructions: Leave operative bandaids on for 2 days. When you remove dressing, leave Steri-Strips on until your follow-up appointment, or until the Steri-Strips fall off on their own. Please Follow Up With: Chris Andino MD When: Please call to schedule 2 week follow up appointment. [phone] Meaningful Use Info Meaningful Use Meaningful Use Diagnoses (Choose all that apply): None applicable Ischemic Stroke Statin Dosing Therapy Reference: STATIN DOSE THERAPY REFERENCE: * Patients > 75 years receive moderate or high dose statin therapy. * Patients 75 years or YOUNGER should receive HIGH intensity statin dose unless contraindicated. You will be required to document reason for non-treatment if statin daily dose does not meet guidelines. HIGH DOSE STATIN THERAPY DAILY Atorvastatin > than or = to 40 mg Rosuvastatin > than or = to 20 mg Amlodipine + Atorvastatin > than or = to 2.5/40 mg Ezetimibe + Simvastatin 10/80 mg Simvastatin 80mg Discharge Plan Admission Admit Date/Time: 07/04/23 05:03 Attending Provider: Chris Andino Primary Care Provider: Dmitri Mosher Discharge Orders/Prescriptions Prescriptions: New oxycodone 5 mg Tablet 5 - 10 mg PO Q4H PRN PRN (Reason: Pain Score 4-10) 5 Days Qty: 20 0RF Continued aspirin [Adult Aspirin Regimen] 81 mg tablet,delayed release (DR/EC) 162 mg PO DAILY rosuvastatin [Crestor] 40 mg tablet 40 mg PO DAILY Qty: 90 3RF ramipril 10 mg capsule 10 mg PO DAILY Qty: 90 3RF metoprolol succinate 50 mg tablet extended release 24 hr 50 mg PO DAILY omeprazole 10 mg capsule,delayed release(DR/EC) 10 mg PO DAILY levothyroxine 125 mcg tablet 125 mcg PO DAILY Referrals / Follow Up: Dmitri Mosher MD [Primary Care Provider] - Disposition Disposition (needs filled in before D/C Order can be placed): Home, Self Care
[2023-07-04] MEDS: Morphine 2 MG/ML Syringe IV (18:05)
[2023-07-04] MEDS: oxyCODONE 5 MG Tablet PO (19:50)
[2023-07-05 02:11] VITALS: BP 117/50; PULSE 55; RESP 14; TEMP 36.6; O2SAT 97
[2023-07-05] MEDS: oxyCODONE 5 MG Tablet PO ×2 (02:24→12:33)
[2023-07-05 06:02] VITALS: BP 130/53; PULSE 57; RESP 14; TEMP 36.4; O2SAT 92
[2023-07-05] MEDS: Piperacil/Tazobactam 3.375 GM in 0.9% Normal Saline (50mL MB+) 50 ML IV (06:08)
[2023-07-05] MEDS: 0.9% Normal Saline (1000mL) 1,000 ML 80 ML IV (06:09)
[2023-07-05 08:04] LABS: Absolute Lymphocyte Count 0.98 X10^3/uL (0.83-4.51); Absolute Neutrophil Count 12.6 X10^3/uL (2.0-7.7); Basophil# 0.03 X10^3/uL; Basophil% 0.2 % (0-1); Hematocrit 32.5 % (40-54); Hemoglobin 10.1 g/dL (13.0-16.5); Lymphocyte # 0.98 X10^3/ul (0.83-4.51); Lymphocyte % 6.1 % (19-41); Mean Corp Hgb Conc 31.1 g/dL (32-36); Mean Corpuscular Hgb 29.2 pg (27.0-32.0); Mean Corpuscular Volume 93.9 fL (80-94); Mean Platelet Vol. 11.1 fl (6.2-12.0); Monocyte# 2.28 X10^3/uL; Monocyte% 14.2 % (0-10); NRBC Flagged by Analyzer 0 % (0-5); Neutrophil # 12.59 X10^3/uL (2.7-7.7); Neutrophil % 78.4 % (47-70); POSITIVE DIFFERENTIAL YES; Platelet Count 186 K/mm3 (150-450); RBC Distribution Width CV 14.1 % (11.6-14.6); RBC Distribution Width SD 48.4 fl (35.1-43.9); Red Blood Count 3.46 M/mm3 (4.6-6.2); White Blood Count 16.1 K/mm3 (4.4-11.0)
[2023-07-05 08:43] LABS: Anion Gap 5 (5-15); BUN 14 mg/dL (7-18); BUN/Creat Ratio 15.5 RATIO (10-20); Calcium,Total 7.5 mg/dL (8.5-10.1); Chloride 108 mmol/L (98-107); Creatinine, Serum 0.91 mg/dL (0.70-1.30); EST Glomerular Filtration Rate 88 mL/min (>60); Est Glom Filt Rate - Afr Amer 107 mL/min (>60); Estimated Creatinine Clearance 95.05 ml/min; Glucose 128 mg/dL (74-106); Potassium 3.6 mmol/L (3.5-5.1); Sodium Level 136 mmol/L (136-145)
[2023-07-05 08:57] LABS: Differential Indicated SCAN CRITERIA MET
[2023-07-05 10:03] LABS: Differential Comment SCANNED
--- NOTE | 2023-07-05 10:10 | DCINST_ITS ---
Discharge Instructions Diet Discharge Diet: Light diet - advance as tolerated Activity May shower in (days): 1 Additional Activity Instructions:: Pain medication may cause nausea. You should typically eat light foods as you take your pain medications. Pain medication may also cause constipation. If this is a problem for you, please discuss with your doctor. Dressing / Incision Call your doctor if your incision/area has: Continuous Slow Oozing, Sudden Increased Bleeding, Increased Pain/ Swelling, Increased Redness and Foul Smelling Discharge Call your doctor if you observe: Fever of 101 or Higher Suture Line Care: Avoid Pulling/Pushing and Avoid Pinching/Bending Cleanse incision/area with: Soap & Water Additional Dressing/Incision Instructions:: Leave operative bandaids on for 2 days. When you remove dressing, leave Steri-Strips on until your follow-up appointment, or until the Steri-Strips fall off on their own. Follow Up Care Please Follow Up With: Chris Andino MD Test Results: Test results from this visit will be discussed in further detail at your follow- up appointment, if applicable. Discharge Plan Admission Admit Date/Time: 07/04/23 05:03 Primary Reason for Your Visit: Acute cholecystitis Attending Provider: Chris Andino Primary Care Provider: Dmitri Mosher Discharge Orders/Prescriptions Prescriptions: New oxycodone 5 mg Tablet 5 - 10 mg PO Q4H PRN PRN (Reason: Pain Score 4-10) 5 Days Qty: 20 0RF Continued aspirin [Adult Aspirin Regimen] 81 mg tablet,delayed release (DR/EC) 162 mg PO DAILY rosuvastatin [Crestor] 40 mg tablet 40 mg PO DAILY Qty: 90 3RF ramipril 10 mg capsule 10 mg PO DAILY Qty: 90 3RF metoprolol succinate 50 mg tablet extended release 24 hr 50 mg PO DAILY omeprazole 10 mg capsule,delayed release(DR/EC) 10 mg PO DAILY levothyroxine 125 mcg tablet 125 mcg PO DAILY Referrals / Follow Up: Dmitri Mosher MD [Primary Care Provider] - Disposition Disposition (needs filled in before D/C Order can be placed): Home, Self Care
--- NOTE | 2023-07-05 10:12 | PCM.PN.SRG ---
Subjective Subjective Patient seen and examined during AM rounds. He is found resting on the edge of his bed. He denies any significant abdominal discomfort and reports significant improvements in the discomfort with which he presented. He shares that he did not have much of a diet following surgery but did tolerate his liquids without any resultant nausea. He is looking forward to breakfast this morning. Objective Data Objective Data Vital Signs: Vital Signs Temp Pulse Resp BP Pulse Ox O2 Del Method O2 Flow Rate 97.6 F L 57 L 14 130/53 H 92 Room Air 2 07/05/23 06:02 07/05/23 06:02 07/05/23 06:02 07/05/23 06:02 07/05/23 06:02 07/05/23 06:02 07/04/23 19:56 Oxygen Flow Rate (L/min) 2 Oxygen Delivery Method Room Air Weight: 227 lb 11.095 oz Body Mass Index (BMI) 31.7 Intake & Output: Intake and Output for Last 24 Hours 07/03/23 07/04/23 07/05/23 23:59 23:59 23:59 Intake Total 3100 / 3100 1056.67 / 1056.67 Balance 3100 / 3100 1056.67 / 1056.67 Lab / Micro Data 07/05/23 07:11 07/05/23 07:11 Labs: Laboratory Results - last 24 hr 07/04/23 07:32: Diff Path Review June07/05/23 07:11: WBC 16.1 H, RBC 3.46 L, Hgb 10.1 L, Hct 32.5 L, MCV 93.9 D, MCH 29.2, MCHC 31.1 L D, RDW Std Deviation 48.4 H, RDW Coeff of Prabhjot 14.1, Plt Count 186, MPV 11.1, Immature Gran % (Auto) 1.100 H, Neut % (Auto) 78.4 H, Lymph % (Auto) 6.1 L, [place] % (Auto) 14.2 H, Eos % (Auto) 0.0, Baso % (Auto) 0.2, Absolute Neuts (auto) 12.6 H, Absolute Lymphs (auto) 0.98, Nucleated RBC % 0, Differential Comment SCANNED, Diff Path Review June, Sodium 136, Potassium 3.6, Chloride 108 H, Carbon Dioxide 23.0, Anion Gap 5, BUN 14, Creatinine 0.91, Estim Creat Clear Calc 95.05, Est GFR (MDRD) Af Amer 107, Est GFR (MDRD) Non-Af 88, BUN/Creatinine Ratio 15.5, Glucose 128 H, Calcium 7.5 L Physical Exam Const oriented x3 and no apparent distress Resp normal respiratory effort GI GI Narrative: Operative dressings intact with minimal drainage to supraumbilical port site. Soft and minimally tender with palpation. Assessment & Plan Assessment/Plan (1) Acute calculous cholecystitis: PLAN: Patient is 67-year-old male postoperative day 1 from laparoscopic cholecystectomy with aborted cholangiography after intraoperative findings confirmed evidence of gangrenous cholecystitis. Today reports significant improvements in his abdominal discomfort and is appropriate with his exam. He is waiting to try food for the first time postoperatively, but otherwise appears appropriate for discharge home. Discharge instructions were reviewed and provided tolerance of this diet advancement he will be granted discharge. He is to follow-up with Dr. Andino as an outpatient. Charges/Coding Visit Charges Inpatient E&M: 42376 Subs Hosp L2
[2023-07-05 11:00] VITALS: BP 127/60; PULSE 62; RESP 16; TEMP 37.1; O2SAT 97
--- NOTE | 2023-07-05 11:04 | CPS ---
Pt just did on his own prior to walking in room. Pt is up and walking around room
[2023-07-08 10:18] LABS: Pathologist Review Reviewed
[2023-07-08 10:19] LABS: Pathologist Review Reviewed
== END 2023-07-05 14:00 | disposition home or self-care (01) | DRG 419 ==
LOC: ED 03:35 → PCU 05:14
PROVIDERS: Anesthesiology; Admitting Provider Surgery; Emergency Provider Emergency Medicine; PCP Family Medicine; Visit Provider Surgery
PROC: (CPT 47610; principal; 2023-07-04 12:40)
DX: K80.00 Calculus of gallbladder with acute cholecystitis without obstruction (principal); K82.A1 Gangrene of gallbladder in cholecystitis; I10 Essential (primary) hypertension; E03.9 Hypothyroidism, unspecified; E78.5 Hyperlipidemia, unspecified; I25.10 Atherosclerotic heart disease of native coronary artery without angina pectoris; K21.9 Gastro-esophageal reflux disease without esophagitis; Z53.09 Procedure and treatment not carried out because of other contraindication; Z79.82 Long term (current) use of aspirin; Z79.890 Hormone replacement therapy; Z79.899 Other long term (current) drug therapy; Z87.891 Personal history of nicotine dependence; Z95.1 Presence of aortocoronary bypass graft; E66.9 Obesity, unspecified; Z68.31 Body mass index [BMI] 31.0-31.9, adult
CPT/HCPCS: 47562; 00790; 36415; 74176; 76705; 80048; 80076; 81001; 83605; 83690; 84443; 85025; 88304; 93005; 94668; 96361; 96365; 96366; 96375; 99221; 99285; J7030; J7050; A4216; G0378; J2405